=== PATIENT | male | born 1985 | race Caucasian/White ===

== ENCOUNTER → 2024-06-18 | Outpatient (CLI) | payer BC ==
--- NOTE | 2024-06-18 11:51 | US ---
EXAMINATION TYPE: US liver DATE OF EXAM: 06/18/2024 COMPARISON: NONE CLINICAL INDICATION: Male, 39 years old with history of R79.89 OTHER SPECIFIED ABNORMAL FINDINGS OF B LOOD; abnormal labs TECHNIQUE: Grayscale and color Doppler imaging of the right upper quadrant. FINDINGS: EXAM MEASUREMENTS: Liver Length: 17.3 cm Gallbladder Wall: 0.2 cm CBD: 0.5 cm, color Doppler imaging was utilized to isolate the common bile duct for measurement. Right Kidney: 11.6x5.x6.5 cm RESEARCH TEST ENGINE EVALUATOR NOTES: limited due to overlying gas/bowel Pancreas: Obscured by bowel gas Liver: Enlarged Gallbladder: No stones seen Evidence for sonographic Valenzuela's sign: No CBD: wnl Right Kidney: No hydronephrosis or masses seen IMPRESSION: Hepatomegaly otherwise unremarkable study [facility], , 06/18/2024 11:48 AM
== END | disposition home or self-care (01) ==
LOC: RADUSWWP 06:50
PROVIDERS: ATTEND Internal Medicine
DX: R16.0 Hepatomegaly, not elsewhere classified (principal); R79.89 Other specified abnormal findings of blood chemistry
CPT/HCPCS: 76705

== ENCOUNTER → 2024-06-26 | Outpatient (CLI) | payer BC | END | disposition home or self-care (01) | LOC: LABWHC1 10:49 | PROVIDERS: ATTEND Internal Medicine | DX: R76.0 Raised antibody titer (principal) | CPT/HCPCS: 36415; 86162 ==